=== PATIENT | female | born 1965 | race Caucasian/White ===

== ENCOUNTER → 2020-09-16 | Outpatient (CLI) | payer OTHER | LOC: LAB 15:06 | PROVIDERS: ATTEND Family Medicine | DX: R05 Cough (principal); R06.02 Shortness of breath; R19.7 Diarrhea, unspecified; R52 Pain, unspecified; R51.9 Headache, unspecified; R06.7 Sneezing ==

== ENCOUNTER → 2020-10-10 | Outpatient (CLI) | payer OTHER ==
[2020-10-10 07:52] LABS: BASOPHILS # (AUTO) 0.1 10^3/uL (0.0-0.1); BASOPHILS % (AUTO) 1 % (0-10); EOSINOPHILS # (AUTO) 0.1 10^3/uL (0.0-0.3); EOSINOPHILS % (AUTO) 2 % (0-10); HEMATOCRIT 42 % (35-52); HEMOGLOBIN 13.3 g/dL (11.5-16.0); LYMPHOCYTES # (AUTO) 2.1 10^3/uL (1.0-4.0); LYMPHOCYTES % (AUTO) 36 % (12-44); MEAN CORPUSCULAR HEMOGLOBIN 28 pg (25-34); MEAN CORPUSCULAR HGB CONC 32 g/dL (32-36); MEAN CORPUSCULAR VOLUME 87 fL (80-99); MONOCYTES # (AUTO) 0.3 10^3/uL (0.0-1.0); MONOCYTES % (AUTO) 5 % (0-12); NEUTROPHILS # (AUTO) 3.2 10^3/uL (1.8-7.8); NEUTROPHILS % (AUTO) 55 % (42-75); PLATELET COUNT 209 10^3/uL (130-400); WHITE BLOOD COUNT 5.7 10^3/uL (4.3-11.0)
[2020-10-10 08:15] LABS: ALANINE AMINOTRANSFERASE 37 U/L (0-55); ALBUMIN 4.5 GM/DL (3.2-4.5); ALKALINE PHOSPHATASE 56 U/L (40-136); BILIRUBIN,TOTAL 0.3 MG/DL (0.1-1.0); BUN/CREATININE RATIO 13; CALCIUM 9.6 MG/DL (8.5-10.1); CARBON DIOXIDE 20 MMOL/L (21-32); CHLORIDE 108 MMOL/L (98-107); CHOLESTEROL 190 MG/DL (< 200); CREATININE SERUM 0.79 MG/DL (0.60-1.30); GFR ESTIMATED > 60; GLUCOSE 108 MG/DL (70-105); HDL CHOLESTEROL 60 MG/DL (40-60); POTASSIUM 4.2 MMOL/L (3.6-5.0); SODIUM 142 MMOL/L (135-145); TOTAL PROTEIN 7.7 GM/DL (6.4-8.2); TRIGLYCERIDES 91 MG/DL (<150); VLDL CHOLESTEROL 18 MG/DL (5-40)
[2020-10-10 08:36] LABS: FREE T4 (FREE THYROXINE) 0.87 NG/DL (0.70-1.48)
== END ==
LOC: LAB 07:13
PROVIDERS: ATTEND Internal Medicine
DX: Z13.6 Encounter for screening for cardiovascular disorders (principal); E03.9 Hypothyroidism, unspecified; D64.9 Anemia, unspecified; I10 Essential (primary) hypertension; R73.9 Hyperglycemia, unspecified; R89.1 Abnormal level of hormones in specimens from other organs, systems and tissues
CPT/HCPCS: 36415; 80053; 80061; 82728; 83001; 83002; 83036; 83540; 84439; 84443; 85025

== ENCOUNTER → 2020-10-13 | Outpatient (CLI) | payer OTHER ==
--- NOTE | 2020-10-13 10:59 | Diagnostic Imaging Report ---
INDICATION: Routine screening. Comparison is made with prior mammogram 04/22/2019 and 03/19/2018. 2-D and 3-D bilateral screening mammography was performed with CAD. Scattered fibroglandular densities are identified bilaterally. Intraparenchymal lymph node in the upper outer right breast appears stable. No spiculated mass or malignant appearing microcalcifications are seen. Axillae are unremarkable. IMPRESSION: BI-RADS Category 2 No mammographic features suspicious for malignancy are identified. Dictated by: Dictated on workstation # [id number]
== END ==
LOC: RAD 09:33
PROVIDERS: ATTEND Internal Medicine
DX: Z12.31 Encounter for screening mammogram for malignant neoplasm of breast (principal)
CPT/HCPCS: 77063; 77067

== ENCOUNTER → 2020-11-30 | Outpatient (CLI) | payer OTHER ==
--- NOTE | 2020-11-30 17:30 | Diagnostic Imaging Report ---
PROCEDURE: Pelvic comp/transvaginal sonogram. TECHNIQUE: Complete transabdominal and transvaginal pelvic ultrasound was performed. In addition, limited pelvic Doppler was performed. INDICATION: Dysfunctional uterine bleeding. Uterus is anteverted measuring 9.7 x 5.3 x 6.2 cm. There is anterior fibroid measuring 19 mm in size. Endometrium is 10 mm in thickness. The right ovary measures 3.5 x 2.2 x 1.7 cm. There are small follicles involving the right ovary. There is blood flow to the right ovary. Left ovary was not visualized. No adnexal mass or free fluid is detected. IMPRESSION: 1. Uterine fibroid. 2. Nonvisualized left ovary. No other significant abnormality is detected. Dictated by: Dictated on workstation # [id number]
== END ==
LOC: RAD 10:00
PROVIDERS: ATTEND Obstetrics & Gynecology
DX: D25.9 Leiomyoma of uterus, unspecified (principal)
CPT/HCPCS: 76830; 76856

== ENCOUNTER 2021-01-01 06:10 | Outpatient (CLI) | payer OTHER ==
[~2021-01-01] VITALS: Ht 167.7 cm; Wt 112.7 kg
[2021-01-01] MEDS ORDERED: ZINC50TA11 PO (15:17)
[2021-01-01] MEDS ORDERED: CHOL-34 PO (15:17)
[2021-01-01] MEDS ORDERED: ASCO-262 PO (15:17)
[2021-01-01] MEDS ORDERED: LISI-729 PO (15:17)
[2021-01-01] MEDS ORDERED: DOXY100T31 PO (15:17)
[2021-01-01] MEDS ORDERED: ASPI-999 PO (15:17)
[2021-01-01] MEDS ORDERED: METF-397 PO (15:17)
== END 2021-01-01 15:21 | disposition home or self-care (01) ==
LOC: PREOP 06:10
PROVIDERS: ATTEND Obstetrics & Gynecology
DX: Z01.818 Encounter for other preprocedural examination (principal)

== ENCOUNTER 2021-01-08 06:45 | Day surgery (SDC) | payer OTHER ==
[~2021-01-08] VITALS: Ht 167.7 cm; Wt 112.7 kg
[2021-01-08] VITALS (10 sets, daily range): BP systolic 127–164; BP diastolic 79–97
[~2021-01-08 06:45] MED LIST: ASCO-262 PO; ASPI-999 PO; CHOL-34 PO; DOXY100T31 PO; LISI-729 PO; METF-397 PO; ZINC50TA11 PO
[2021-01-08] MEDS ORDERED: KETOROLAC 30 MG/ML VIAL IVP ONE (07:30)
[2021-01-08] MEDS ORDERED: ONDANSETRON 4 MG/2 ML (SDV) Z0FRAN IVP PRN (07:30)
[2021-01-08] MEDS ORDERED: BUPIVACAINE 0.25% 30 ML (SENSORCAINE) VIAL ONE (07:30)
[2021-01-08] MEDS ORDERED: HYDROcodone/APAP 5 MG/325 MG (LORTAB) TAB PO PRN (07:30)
[2021-01-08] MEDS ORDERED: D5 LR IV SOLUTION 1,000 ML IV SCH (07:30)
--- NOTE | 2021-01-08 07:30 | History & Physical-Surgical ---
HPO-Surgical History of Present Illness Chief Complaint: Heavy vaginal bleeding Diagnosis/Surgical Indication: AUB Procedure: D&C Date of Surgery: Jan 08, 2021 Allergies and Home Medications Allergies Coded Allergies: Sulfa (Sulfonamide Antibiotics) (Verified Allergy, Unknown, Hives, 01/01/21) iodine (Verified Allergy, Unknown, Hives, 01/01/21) Home Medications Ascorbate Calcium 500 Mg Tablet, 500 MG PO DAILY, (Reported) Aspirin 81 Mg Tab.chew, 81 MG PO DAILY, (Reported) Cholecalciferol (Vitamin D3) 25 Mcg Tablet, 25 MCG PO DAILY, (Reported) Doxycycline Monohydrate 100 Mg Tablet, 100 MG PO BID, (Reported) Lisinopril 5 Mg Tablet, 5 MG PO DAILY, (Reported) Metformin HCl 500 Mg Tablet, 500 MG PO BID WITH MEALS, (Reported) Zinc Gluconate 50 Mg Tablet, 50 MG PO DAILY, (Reported) Patient Home Medication List Home Medication List Reviewed: Yes Past Hubxute-Tlvkwj-Aejkkh Hx Patient Social History Recent Hopitalizations: No Immunizations Up To Date Date of Influenza Vaccine: Jun 22, 2020 Seasonal Allergies Seasonal Allergies: No Surgeries Yes (L breast bx, L foot sx, ) Adenoidectomy, Tonsillectomy, Tubal Ligation Respiratory No Cardiovascular No (palpitations since COVID on [place]ora) Neurological No Genitourinary No Gastrointestinal No Musculoskeletal No Endocrine History of Endocrine Disorders: Yes Endocrine Disorders: Diabetes, Non-Insulin dep HEENT History of HEENT Disorders: No Cancer No Psychosocial History of Psychiatric Problem: No Integumentary History of Skin or Integumenta: No (L calf tick bite healing) Blood Transfusions History of Blood Disorders: No Exam Vital Signs Capillary Refill : General Appearance: Alert, Oriented X3 HEENT: Atraumatic Respiratory: Clear to Auscultation Cardiovascular: Regular Rate Abdominal: Normal Bowel Sounds Extremities: Normal Pulses Skin: No Breakdown Neuro: Normal Gait, Normal Speech Psych/Mental Status: Mental Status NL Assessment/Plan Assessment and Plan Diagnosis: 55 yo with AUB Plan: D and C Admission Diagnosis Diagnosis: 55 yo with AUB Plan: D and C Admission Status: Other (Outpt Proc) ANDRE NY DO Jan 08, 2021 07:29
--- NOTE | 2021-01-08 07:31 | Discharge Inst-Women's Service ---
Discharge Inst-Women's Serv Depart Medication/Instructions New, Converted or Re-Newed RX: RX on Chart Problems Reviewed?: Yes Consults/Follow Up Additional Follow Up: Yes Orders/Referrals Dr. Ny in 7-10 days Activity Activity: Activity as Tolerated Driving Instructions: No Driving for 1 Week NO SMOKING: NO SMOKING Nothing Inside Vagina: No Douching, No Martinez, No Tampons Diet Discharge Diet: No Restrictions Symptoms to Report to : Bleeding Excessive, Pain Increased, Fever Over 101 Degrees F, Vaginal Bleeding Increase, Questions/Concerns For Any Problems or Questions: Contact Your Physician ANDRE NY DO Jan 08, 2021 07:31
[2021-01-08] MEDS ORDERED: IBUP-1773 PO (07:32)
[2021-01-08] MEDS ORDERED: MIDAZOLAM 2 MG/2 ML (VERSED) VIAL ONE (07:50)
[2021-01-08] MEDS ORDERED: fentaNYL INJ 100 MCG/2 ML AMP ONE (07:51)
[2021-01-08] MEDS ORDERED: LIDOCAINE PF 2% 5 ML (XYLOCAINE) VIAL ONE (07:53)
[2021-01-08] MEDS ORDERED: proPOfol 200 MG/20 ML (DIPRIVAN) VIAL IV ONE (07:53)
[2021-01-08] MEDS ORDERED: ONDANSETRON 4 MG/2 ML (SDV) Z0FRAN ONE (07:53)
[2021-01-08 08:09] LABS: BASOPHILS # (AUTO) 0.1 10^3/uL (0.0-0.1); BASOPHILS % (AUTO) 1 % (0-10); EOSINOPHILS # (AUTO) 0.1 10^3/uL (0.0-0.3); EOSINOPHILS % (AUTO) 2 % (0-10); HEMATOCRIT 42 % (35-52); HEMOGLOBIN 13.6 g/dL (11.5-16.0); LYMPHOCYTES # (AUTO) 1.9 10^3/uL (1.0-4.0); LYMPHOCYTES % (AUTO) 39 % (12-44); MEAN CORPUSCULAR HEMOGLOBIN 28 pg (25-34); MEAN CORPUSCULAR HGB CONC 33 g/dL (32-36); MEAN CORPUSCULAR VOLUME 86 fL (80-99); MEAN PLATELET VOLUME 11.6 fL (9.0-12.2); MONOCYTES # (AUTO) 0.4 10^3/uL (0.0-1.0); MONOCYTES % (AUTO) 7 % (0-12); NEUTROPHILS # (AUTO) 2.4 10^3/uL (1.8-7.8); NEUTROPHILS % (AUTO) 49 % (42-75); PLATELET COUNT 198 10^3/uL (130-400); WHITE BLOOD COUNT 4.9 10^3/uL (4.3-11.0)
[2021-01-08] MEDS ORDERED: LACTATED RINGERS 1,000 ML IV PRN (08:15)
[2021-01-08] MEDS ORDERED: SEVOFLURANE (ULTANE) 15 ML INHAL SOLN ONE (09:50)
[2021-01-08] MEDS ORDERED: KETOROLAC 30 MG/ML VIAL ONE (10:08)
--- NOTE | 2021-01-08 11:27 | Anesthesia-General Post-Op ---
General Patient Condition Mental Status/LOC: Same as Preop Cardiovascular: Satisfactory Nausea/Vomiting: Absent Respiratory: Satisfactory Pain: Controlled Complications: Absent Post Op Complications Complications None Follow Up Care/Instructions Patient Instructions None needed. Anesthesia/Patient Condition Patient Condition Patient is doing well, no complaints, stable vital signs, no apparent adverse anesthesia problems. No complications reported per nursing. VIV VALDEZ CRNA Jan 08, 2021 11:27
--- NOTE | 2021-01-08 14:41 | OPERATIVE REPORT ---
DATE OF SERVICE: PREOPERATIVE DIAGNOSIS: A 55-year-old female with abnormal uterine bleeding. POSTOPERATIVE DIAGNOSIS: A 55-year-old female with abnormal uterine bleeding PROCEDURE PERFORMED: D and C. SURGEON: Andre Ny DO. ANESTHESIA: LMA general. ESTIMATED BLOOD LOSS: Minimal. URINE OUTPUT: 150 mL clear at the end of the procedure. FLUIDS: 800 mL lactated Ringer's solution. FINDINGS: Grossly normal-appearing external female genitalia. Normal appearing cervix. SPECIMEN SENT: Endometrial and endocervical curettings. INDICATIONS FOR PROCEDURE: This 55-year-old female is a patient consulted to me from Dr. Jaffe for concerns with bleeding past the age of [age] years old. It was irregular and sometimes heavy. I discussed with the patient my concerns for endometrial hyperplasia or endometrial carcinoma. However, there were benign condition that could cause it, such as endometrial polyp. I discussed with her endometrial biopsy in the office; however, this was just for diagnostic evaluation and how D and C may potentially offer a curative and diagnostic evaluation of the procedure. Therefore, the patient wanted to proceed with D and C. Risks of the procedure were discussed with the patient in detail and after all of her questions were answered, consent was obtained, the patient was taken to the operating room. OPERATIVE REPORT IN DETAIL: Once in the operating room, anesthesia was found to be adequate, she was placed in dorsal lithotomy position, prepped and draped in a normal sterile fashion. Timeout was performed. The bladder was drained using straight catheterization. A weighted speculum was inserted into the patient's vagina. Right angle retractor was used to visualize the cervix, which was grasped at 12 o'clock position using a long Allis clamp. I then gently sound the uterine cavity, depth was found to be 8 cm. I performed paracervical block at 3 and 9 o'clock positions on the cervix. Care was taken to aspirate for injecting, a total of 10 mL were used 5 in each injection spot. I then gently dilated the cervix using Hanks dilators until I am able to introduce endometrial curette in the endometrial cavity. This was done and on several different passes, a small to moderate amount of endometrial tissue was collected and some suspicion for endometrial polyp was collected as well, after which there was no active bleeding noted from any of my dissection planes. I removed all the instruments from the patient's vagina. The patient tolerated the procedure well and sent to recovery in stable condition. Lap and sponge counts were correct at the end of procedure. Instrument counts were correct as well. Job ID: [id number] DocumentID: [id number] Dictated Date: 01/08/2021 10:06:06 Bilingual Receptionist Date: 01/08/2021 14:40:26 Dictated By: ANDRE NY DO
== END 2021-01-08 12:20 | disposition home or self-care (01) ==
LOC: SDC 06:45
PROVIDERS: ATTEND Obstetrics & Gynecology
DX: N84.1 Polyp of cervix uteri (principal); N93.9 Abnormal uterine and vaginal bleeding, unspecified; D25.1 Intramural leiomyoma of uterus; I10 Essential (primary) hypertension; E11.9 Type 2 diabetes mellitus without complications; E66.01 Morbid (severe) obesity due to excess calories; Z68.41 Body mass index [BMI] 40.0-44.9, adult; Z79.899 Other long term (current) drug therapy; Z79.84 Long term (current) use of oral hypoglycemic drugs; Z88.2 Allergy status to sulfonamides; Z91.041 Radiographic dye allergy status
CPT/HCPCS: 36415; 82962; 85025; 86850; 86900; 86901; 87081; 88305

== ENCOUNTER → 2021-04-03 | Outpatient (CLI) | payer OTHER ==
[~2021-04-03] MED LIST changes: +IBUP-1773 PO
[2021-04-03 08:35] LABS: ALBUMIN 4.3 GM/DL (3.2-4.5); CHLORIDE 106 MMOL/L (98-107); POTASSIUM 4.1 MMOL/L (3.6-5.0); SODIUM 140 MMOL/L (135-145)
[2021-04-03 08:36] LABS: CALCIUM 9.4 MG/DL (8.5-10.1)
[2021-04-03 08:37] LABS: GLUCOSE 108 MG/DL (70-105); TRIGLYCERIDES 87 MG/DL (<150)
[2021-04-03 08:38] LABS: TOTAL PROTEIN 6.9 GM/DL (6.4-8.2)
[2021-04-03 08:39] LABS: CARBON DIOXIDE 25 MMOL/L (21-32)
[2021-04-03 08:40] LABS: BILIRUBIN,TOTAL 0.4 MG/DL (0.1-1.0)
[2021-04-03 08:41] LABS: ALKALINE PHOSPHATASE 67 U/L (40-136); CREATININE SERUM 0.77 MG/DL (0.60-1.30); GFR ESTIMATED > 60
[2021-04-03 08:42] LABS: BUN/CREATININE RATIO 10; CHOLESTEROL 175 MG/DL (< 200)
[2021-04-03 08:44] LABS: ALANINE AMINOTRANSFERASE 13 U/L (0-55)
[2021-04-03 09:05] LABS: FREE T4 (FREE THYROXINE) 0.88 NG/DL (0.70-1.48)
== END ==
LOC: LAB 07:55
PROVIDERS: ATTEND Internal Medicine
DX: Z13.6 Encounter for screening for cardiovascular disorders (principal); I10 Essential (primary) hypertension; E03.9 Hypothyroidism, unspecified
CPT/HCPCS: 36415; 80053; 82465; 84439; 84443; 84478

== ENCOUNTER → 2021-04-10 | Outpatient (CLI) | payer OTHER | LOC: LAB 14:44 | PROVIDERS: ATTEND Internal Medicine | DX: R73.9 Hyperglycemia, unspecified (principal) | CPT/HCPCS: 36415; 83036 ==

== ENCOUNTER → 2021-10-31 | Outpatient (CLI) | payer OTHER ==
[~2021-10-31] MED LIST changes: -LISI-729 PO; +LISI5TAB20 PO
--- NOTE | 2021-10-31 11:18 | Diagnostic Imaging Report ---
INDICATION: Chronic left shoulder pain. TIME OF EXAM: 10:40 AM Glenohumeral and acromioclavicular alignment are normal. Acromiohumeral space is normal. No fracture or dislocation is identified. IMPRESSION: No acute bony abnormality is detected. Dictated by: Dictated on workstation # [id number]
== END ==
LOC: RAD 10:26
PROVIDERS: ATTEND Orthopaedic Surgery
DX: M25.512 Pain in left shoulder (principal)
CPT/HCPCS: 73030

== ENCOUNTER → 2021-11-01 | Outpatient (CLI) | payer OTHER | LOC: ORTHO 09:59 | PROVIDERS: ATTEND Orthopaedic Surgery | DX: M75.52 Bursitis of left shoulder (principal) | CPT/HCPCS: 20610; G0463 ==

== ENCOUNTER → 2021-11-09 | Outpatient (CLI) | payer OTHER ==
[2021-11-09 09:10] VITALS: BP 134/98
--- NOTE | 2021-11-09 11:50 | Cardiology Stress Test Report ---
Stress Test Report Date of Procedure/Referring: Date of Procedure: Nov 09, 2021 PCP Hector Mandujano MD Admitting Physician Daniela Jaffe DO Indications: PVCs Baseline Heart Rate: 67 Baseline Blood Pressure: Blood Pressure Systolic: 134 Blood Pressure Diastolic: 98 Baseline EKG: Baseline EKG: NSR, V trigemini Summary/Conclusion: Summary: In summary, the patient started exercising with a baseline heart rate, blood pressure and EKG mentioned above Patient was able to exercise for a total of 6 minutes on Thierry protocol, METs 7.3 Maximum heart rate 152 Maximum blood pressure 159/108 Stress EKG, Minimal nondiagnostic changes Recovery EKG , Return to baseline Conclusion: 1. Good exercise tolerance for a total of 6 minutes on Thierry protocol, 7.3 METs, achieving 92 percent of maximum expected heart rate 2. Minimal nondiagnostic EKG changes with exercise returned to baseline during recovery 3. Frequent PVCs with ventricular trigeminy noted at rest and early in exercise resolved after 2 minutes of exercise and did not have any further PVCs until late in recovery HECTOR MANDUJANO MD Nov 09, 2021 11:50
== END ==
LOC: CARD 11:30
PROVIDERS: ATTEND Internal Medicine Cardiovascular Disease
DX: I49.3 Ventricular premature depolarization (principal)
CPT/HCPCS: 93017

== ENCOUNTER → 2022-01-31 | Outpatient (CLI) | payer OTHER ==
--- NOTE | 2022-01-31 13:06 | Diagnostic Imaging Report ---
INDICATION: Neck pain. Numbness and tingling down the left arm. COMPARISON: None FINDINGS: Frontal, lateral, and open-mouth radiographic views of the cervical spine were obtained. Cervical spine is seen down to C7-T1 level on the lateral view. Evaluation of static alignment shows reversal of normal lordotic curvature epicentered at the C6 level. There is also slight grade 1 anterolisthesis at C4-C5. There is no evidence of jumped facets. Open-mouth view shows normal C1-C2 alignment. Vertebral body heights are maintained. There is no acute fracture. Degenerative changes are noted, greatest at the C6-C7 level where there is intervertebral disc height loss with anterior posterior endplate osteophyte formations. Surrounding soft tissue structures are unremarkable. Included portions lung apices are clear. IMPRESSION: 1. No acute fracture or dislocation of the cervical spine. 2. Degenerative changes, greatest at C6-C7. Dictated by: Dictated on workstation # [id number]
== END ==
LOC: RAD 12:11
PROVIDERS: ATTEND Internal Medicine
DX: M47.812 Spondylosis without myelopathy or radiculopathy, cervical region (principal)
CPT/HCPCS: 72040

== ENCOUNTER → 2022-04-02 | Outpatient (CLI) | payer OTHER ==
[2022-04-02 08:06] LABS: BASOPHILS # (AUTO) 0.1 10^3/uL (0.0-0.1); BASOPHILS % (AUTO) 1 % (0-10); EOSINOPHILS # (AUTO) 0.1 10^3/uL (0.0-0.3); EOSINOPHILS % (AUTO) 2 % (0-10); HEMATOCRIT 42 % (35-52); LYMPHOCYTES # (AUTO) 1.8 10^3/uL (1.0-4.0); LYMPHOCYTES % (AUTO) 35 % (12-44); MEAN CORPUSCULAR HEMOGLOBIN 28 pg (25-34); MEAN CORPUSCULAR HGB CONC 31 g/dL (32-36); MEAN CORPUSCULAR VOLUME 89 fL (80-99); MEAN PLATELET VOLUME 11.5 fL (9.0-12.2); MONOCYTES # (AUTO) 0.4 10^3/uL (0.0-1.0); MONOCYTES % (AUTO) 7 % (0-12); NEUTROPHILS # (AUTO) 2.8 10^3/uL (1.8-7.8); NEUTROPHILS % (AUTO) 54 % (42-75); PLATELET COUNT 199 10^3/uL (130-400); WHITE BLOOD COUNT 5.1 10^3/uL (4.3-11.0)
[2022-04-02 08:18] LABS: ALBUMIN 4.3 GM/DL (3.2-4.5); BILIRUBIN,TOTAL 0.3 MG/DL (0.1-1.0); CALCIUM 9.5 MG/DL (8.5-10.1); CREATININE SERUM 0.7 MG/DL (0.60-1.30); POTASSIUM 4.1 MMOL/L (3.6-5.0); TOTAL PROTEIN 6.8 GM/DL (6.4-8.2)
[2022-04-02 08:39] LABS: FREE T4 (FREE THYROXINE) 0.88 NG/DL (0.70-1.48)
== END ==
LOC: LAB 07:35
PROVIDERS: ATTEND Internal Medicine
DX: Z13.6 Encounter for screening for cardiovascular disorders (principal); I10 Essential (primary) hypertension; E11.65 Type 2 diabetes mellitus with hyperglycemia; E03.9 Hypothyroidism, unspecified
CPT/HCPCS: 36415; 80053; 80061; 83036; 84439; 84443; 85025

== ENCOUNTER → 2022-04-08 | Outpatient (CLI) | payer OTHER ==
--- NOTE | 2022-04-08 09:34 | Diagnostic Imaging Report ---
INDICATION: Routine screening. COMPARISON: 10/13/2020 and 04/22/2019. TECHNIQUE: 2D and 3D bilateral screening mammography was performed with CAD. FINDINGS: Scattered fibroglandular densities are identified bilaterally. The intraparenchymal lymph node in the outer right breast is stable. No spiculated mass or malignant-appearing microcalcifications are seen. The axillae are unremarkable. IMPRESSION: No mammographic features suspicious for malignancy are identified. ACR BI-RADS Category 2: Benign findings. Result letter will be mailed to the patient. Note: At least 10% of breast cancer is not imaged by mammography. Dictated by: Dictated on workstation # [id number]
== END ==
LOC: RAD 08:00
PROVIDERS: ATTEND Internal Medicine
DX: Z12.31 Encounter for screening mammogram for malignant neoplasm of breast (principal)
CPT/HCPCS: 77063; 77067

== ENCOUNTER → 2022-10-04 | Outpatient (CLI) | payer OTHER ==
[2022-10-04 08:03] LABS: BASOPHILS # (AUTO) 0.1 10^3/uL (0.0-0.1); BASOPHILS % (AUTO) 1 % (0-10); EOSINOPHILS # (AUTO) 0.1 10^3/uL (0.0-0.3); EOSINOPHILS % (AUTO) 1 % (0-10); HEMATOCRIT 42 % (35-52); HEMOGLOBIN 13.7 g/dL (11.5-16.0); LYMPHOCYTES # (AUTO) 1.9 10^3/uL (1.0-4.0); LYMPHOCYTES % (AUTO) 30 % (12-44); MEAN CORPUSCULAR HEMOGLOBIN 28 pg (25-34); MEAN CORPUSCULAR HGB CONC 33 g/dL (32-36); MEAN CORPUSCULAR VOLUME 86 fL (80-99); MEAN PLATELET VOLUME 11.6 fL (9.0-12.2); MONOCYTES # (AUTO) 0.3 10^3/uL (0.0-1.0); MONOCYTES % (AUTO) 5 % (0-12); NEUTROPHILS # (AUTO) 4.1 10^3/uL (1.8-7.8); NEUTROPHILS % (AUTO) 62 % (42-75); PLATELET COUNT 214 10^3/uL (130-400); WHITE BLOOD COUNT 6.5 10^3/uL (4.3-11.0)
[2022-10-04 08:23] LABS: ALBUMIN 4.5 GM/DL (3.2-4.5); BILIRUBIN,TOTAL 0.3 MG/DL (0.1-1.0); CALCIUM 9.5 MG/DL (8.5-10.1); CREATININE SERUM 0.7 MG/DL (0.60-1.30); POTASSIUM 4.1 MMOL/L (3.6-5.0); TOTAL PROTEIN 7.1 GM/DL (6.4-8.2)
== END ==
LOC: LAB 07:32
PROVIDERS: ATTEND Internal Medicine
DX: Z00.00 Encounter for general adult medical examination without abnormal findings (principal); E11.65 Type 2 diabetes mellitus with hyperglycemia; E03.9 Hypothyroidism, unspecified; E78.00 Pure hypercholesterolemia, unspecified; E78.1 Pure hyperglyceridemia
CPT/HCPCS: 36415; 80053; 80061; 83036; 84436; 84443; 85025

== ENCOUNTER → 2022-10-31 | Outpatient (CLI) | payer OTHER ==
--- NOTE | 2022-10-31 12:12 | Diagnostic Imaging Report ---
PROCEDURE: Pelvic comp/transvaginal sonogram. TECHNIQUE: Complete transabdominal and transvaginal pelvic ultrasound was performed. In addition, limited pelvic Doppler was performed. INDICATION: Postmenopausal bleeding. COMPARISON: Correlation is made with prior ultrasound from 11/30/2020. FINDINGS: Uterus measures 8.8 x 5.2 x 5.4 cm. Probable fibroid anteriorly is noted measuring 1.7 x 1.9 x 1.7 cm, unchanged from prior exam. Endometrium is 6 mm in thickness. Ovaries could not be visualized due to overlying bowel gas. No adnexal mass or free fluid is detected. IMPRESSION: 1. Stable uterine fibroid. 2. Borderline endometrial thickness at 6 mm. 3. Nonvisualized ovaries. Dictated by: Dictated on workstation # [id number]
== END ==
LOC: RAD 11:04
PROVIDERS: ATTEND Obstetrics & Gynecology
DX: N95.0 Postmenopausal bleeding (principal)
CPT/HCPCS: 76830; 76856

== ENCOUNTER → 2023-03-31 | Outpatient (CLI) | payer OTHER ==
[2023-03-31 08:10] LABS: ALBUMIN 4.4 GM/DL (3.2-4.5); BILIRUBIN,TOTAL 0.4 MG/DL (0.1-1.0); CREATININE SERUM 0.79 MG/DL (0.60-1.30); TOTAL PROTEIN 7.1 GM/DL (6.4-8.2)
[2023-03-31 08:30] LABS: FREE T4 (FREE THYROXINE) 0.94 NG/DL (0.70-1.48)
== END ==
LOC: LAB 07:34
PROVIDERS: ATTEND Internal Medicine
DX: Z00.00 Encounter for general adult medical examination without abnormal findings (principal); E78.00 Pure hypercholesterolemia, unspecified; E78.1 Pure hyperglyceridemia; E03.9 Hypothyroidism, unspecified; E11.65 Type 2 diabetes mellitus with hyperglycemia
CPT/HCPCS: 36415; 80053; 82465; 83036; 84439; 84443; 84478

== ENCOUNTER → 2023-04-15 | Outpatient (CLI) | payer OTHER ==
--- NOTE | 2023-04-15 15:23 | Diagnostic Imaging Report ---
EXAMINATION: 3D bilateral screening mammogram with CAD. INDICATION: Screening. COMPARISON: This study was compared to the prior exams of 04/08/2022 and 10/13/2020. PERSONAL HISTORY: At this time, there are no current complaints. FINDINGS: Both breasts do seem smaller than on the prior study. Reportedly in the interval since the previous exam, the patient has lost 60 pounds. The fibroglandular tissue in both breasts is heterogeneously dense. This does limit the sensitivity of this exam. Overall, there has been no significant change. There is no primary or secondary sign of malignancy noted. IMPRESSION: There is no evidence for malignancy. ACR BI-RADS Category 1: Negative. Result letter will be mailed to the patient. Note: At least 10% of breast cancer is not imaged by mammography. Dictated by: Dictated on workstation # [id number]
== END ==
LOC: RAD 13:55
PROVIDERS: ATTEND Internal Medicine
DX: Z12.31 Encounter for screening mammogram for malignant neoplasm of breast (principal)
CPT/HCPCS: 77063; 77067

== ENCOUNTER → 2023-07-15 | Outpatient (CLI) | payer OTHER ==
--- NOTE | 2023-07-15 13:50 | Diagnostic Imaging Report ---
PROCEDURE: Pelvic comp/transvaginal sonogram. TECHNIQUE: Complete transabdominal and transvaginal pelvic ultrasound was performed. In addition, limited pelvic Doppler was performed. INDICATION: Postmenopausal bleeding. Correlation is made with prior ultrasound from 10/31/2022. Uterus is anteverted measuring 8.4 x 4.5 x 5.3 cm. Uterine fibroid does measure slightly smaller in today's study of 14 mm compared with 19 mm on prior. Endometrium is 3 mm in thickness. No definite right ovarian tissue is identified however there is a cyst in the right adnexa approximately 17 x 14 mm. Left ovary measures 2.2 x 0.8 x 1.6 cm. There does appear to be blood flow along the margins. No free fluid is seen. No other adnexal mass identified. IMPRESSION: 1. Slight decrease in size of uterine fibroid since prior study from October 2022. 2. 17 mm right adnexal cyst. No other significant abnormality is detected. Dictated by: Dictated on workstation # [id number]
== END ==
LOC: RAD 11:11
PROVIDERS: ATTEND Nurse Practitioner Women's Health
DX: D25.9 Leiomyoma of uterus, unspecified (principal); N83.201 Unspecified ovarian cyst, right side; N95.0 Postmenopausal bleeding; Z87.42 Personal history of other diseases of the female genital tract
CPT/HCPCS: 76830; 76856